=== PATIENT | female | born 1970 | race Two or more races ===

== ENCOUNTER 2017-01-29 15:37 | Emergency (ER) | payer MEDICAID ==
[~2017-01-29 15:37] MED LIST: ADVAIR 25028 BLISTE1; ALBUTEROL17 GM; ALBUTEROL17 GM INH; ALLERCLEAR10 MG PO; ATENOLOL25 MG; BACITRACIN30 GM TP; BENADRYL25 M3 PO; BENADRYL25 MG/TA1 PO; BENZONATATE200 MG PO; BISOPROLOL FUMA10 MG PO; BUSPAR15 MG/TAB PO; CADUET 5 MG/401 TAB; CADUET 5 MG/401 TAB PO; CELEXA40 MG PO; CLARITIN10 M1 PO; CLARITIN10 MG; CLINDAMYCIN HC300 MG PO; COUMADIN2 MG; COUMADIN3 MG; COUMADIN4 MG; COUMADIN5 M1 PO; COUMADIN5 M2 PO; COUMADIN5 MG PO; COUMADIN6 MG PO; COUMADIN7.5 MG; DELTASONE10 MG PO; DITROPAN5 MG PO; FLEXERIL10 MG PO; FUROSEMIDE20 MG PO; GLUCOPHAGE XR500 MG PO; GLUCOPHAGE500 M3 PO; GLUCOPHAGE500 MG PO; GLUCOTROL10 M1 PO; HCT PO; IMDUR30 MG PO; JANUVIA50 M1 PO; KLOR-CON 1010 MEQ PO; LAMICTAL100 MG; LEVOFLOXACIN500 MG PO; LEVOTHROID150 MC1 PO; LEVOTHROID175 MCG PO; LEVOTHROID200 MCG PO; LEVOTHYROXINE150 MC3 PO; LEVOXYL150 MCG; LEVOXYL75 MCG PO; LOPRESSOR50 MG PO; LOVENOX80 MG/0.8 SQ; LYRICA50 MG/CAP PO; MAXZIDE 75-501 EACH PO; MAXZIDE 75/50 T1 TAB; METOPROLOL TART25 MG PO; NITROSTAT0.4 MG; NORCO 5/325 TAB1 TAB PO; NORVASC2.5 MG; NORVASC2.5 MG PO; NORVASC5 M1 PO; OXYCONTIN20 M2 PO; PATADAY2.5 M1; POTASSIUM 25 M25 MEQ PO; POTASSIUM CHLO20 MEQ; PROMETHAZINE HC25 M3 PO; PROTONIX40 M1 PO; PROTONIX40 M2 PO; PROTONIX40 MG PO; PROVENTIL HFA6.7 G1 IH; REGLAN10 MG PO; REGLAN5 MG PO; SOMA350 MG; TIROSINT13 MC1 PO; TRAMADOL HCL50 MG PO; TRIAMTERENE PO; VERAPAMIL ER120 M1 PO; VERAPAMIL PO; ZANAFLEX4 M PO; ZOFRAN ODT4 MG/UDTAB PO; ZYRTEC10 MG PO; [UNRECOGNIZED DRUG - OTHER] PO; blood pressure
[2017-01-29] MEDS ORDERED: VENTOLIN HFA18 G2 INH (16:13)
[2017-01-29] MEDS ORDERED: COMBIVENT RESPIM4 G1 INH (16:13)
[2017-01-29] MEDS ORDERED: DULERA 200 MCG/13 G1 INH (16:14)
[2017-01-29] MEDS ORDERED: LASIX20 M1 PO (16:15)
== END 2017-01-29 16:31 | disposition left against medical advice (07) ==
LOC: EDMED 15:37
DX: R06.00 Dyspnea, unspecified (principal); E11.9 Type 2 diabetes mellitus without complications; I10 Essential (primary) hypertension; J45.909 Unspecified asthma, uncomplicated; F31.9 Bipolar disorder, unspecified; Z88.0 Allergy status to penicillin; Z88.2 Allergy status to sulfonamides